=== PATIENT | male | born 1955 | race Two or more races ===

== ENCOUNTER → 2018-01-06 09:41 | Outpatient (CLI) | payer OTHER ==
[~2018-01-06 09:41] MED LIST: ALLEGRA ALLERG180 MG PO; ATARAX25 MG PO; CATAFLAM50 MG PO; FIORICET PO; MEDROL4 MG PO
== END | disposition home or self-care (01) ==
LOC: LAB 09:41
DX: I11.9 Hypertensive heart disease without heart failure (principal); E78.2 Mixed hyperlipidemia; E11.9 Type 2 diabetes mellitus without complications

== ENCOUNTER 2018-03-10 08:53 | Outpatient (CLI) | payer OTHER | END 2018-03-10 09:02 | disposition home or self-care (01) | LOC: LAB 08:53 | DX: E11.9 Type 2 diabetes mellitus without complications (principal) ==

== ENCOUNTER 2018-04-18 10:04 | Outpatient (CLI) | payer OTHER | END 2018-04-18 10:20 | disposition home or self-care (01) | LOC: LAB 10:04 | DX: D72.821 Monocytosis (symptomatic) (principal); I10 Essential (primary) hypertension; D50.8 Other iron deficiency anemias; D51.8 Other vitamin B12 deficiency anemias; D51.0 Vitamin B12 deficiency anemia due to intrinsic factor deficiency; D51.1 Vitamin B12 deficiency anemia due to selective vitamin B12 malabsorption with proteinuria; E55.9 Vitamin D deficiency, unspecified; K90.89 Other intestinal malabsorption; E06.3 Autoimmune thyroiditis; R97.0 Elevated carcinoembryonic antigen [CEA]; C18.9 Malignant neoplasm of colon, unspecified ==

== ENCOUNTER 2018-04-18 10:30 | Outpatient (CLI) | payer OTHER | END 2018-04-18 10:33 | disposition home or self-care (01) | LOC: SONOGRAMA 10:30 | DX: D72.821 Monocytosis (symptomatic) (principal); I10 Essential (primary) hypertension; E03.8 Other specified hypothyroidism ==

== ENCOUNTER 2018-07-04 10:13 | Outpatient (CLI) | payer OTHER | END 2018-07-04 10:14 | disposition home or self-care (01) | LOC: LAB 10:13 | DX: D72.821 Monocytosis (symptomatic) (principal); D51.3 Other dietary vitamin B12 deficiency anemia; I10 Essential (primary) hypertension; D50.8 Other iron deficiency anemias; D51.8 Other vitamin B12 deficiency anemias ==

== ENCOUNTER 2018-12-31 09:42 | Outpatient (CLI) | payer OTHER | END 2018-12-31 10:15 | disposition home or self-care (01) | LOC: LAB 09:42 | DX: D72.821 Monocytosis (symptomatic) (principal); D51.3 Other dietary vitamin B12 deficiency anemia; D50.8 Other iron deficiency anemias; D51.8 Other vitamin B12 deficiency anemias; I10 Essential (primary) hypertension; K90.89 Other intestinal malabsorption; E03.8 Other specified hypothyroidism ==

== ENCOUNTER 2019-03-26 11:01 | Outpatient (CLI) | payer OTHER | END 2019-03-26 11:15 | disposition home or self-care (01) | LOC: LAB 11:01 | DX: D72.821 Monocytosis (symptomatic) (principal); D51.3 Other dietary vitamin B12 deficiency anemia; I10 Essential (primary) hypertension; M15.0 Primary generalized (osteo)arthritis; M81.0 Age-related osteoporosis without current pathological fracture; M32.8 Other forms of systemic lupus erythematosus; R97.0 Elevated carcinoembryonic antigen [CEA]; E78.2 Mixed hyperlipidemia ==

== ENCOUNTER 2019-06-16 14:32 | Emergency (ER) | payer OTHER ==
[~2019-06-16] VITALS: Ht 172.7 cm; Wt 81.2 kg
== END 2019-06-16 16:07 | disposition home or self-care (01) ==
LOC: ER 14:32
DX: R53.1 Weakness (principal)

== ENCOUNTER → 2019-12-17 10:18 | Outpatient (CLI) | payer OTHER | END | disposition home or self-care (01) | LOC: LAB 10:18 | DX: R97.20 Elevated prostate specific antigen [PSA] (principal) ==